=== PATIENT | female | born 1965 | race American Indian/Alaskan Native ===

== ENCOUNTER 2021-10-11 17:05 | Emergency (ER) | payer BC ==
[2021-10-11 18:36] LABS: Bilirubin,Urine NEG (Negative); Blood,Urine NEG (Negative); Color,Urine Straw (Yellow); Protein,Urine <15 mg/dL mg/dL (Negative); Urobilinogen,Urine < 2.0 mg/dL (<2.0)
[2021-10-11 18:45] LABS: Hematocrit 48.3 % (30.3-42.9); Hemoglobin 15.3 gm/dl (10.1-14.3); Mean Corpuscular HGB Conc 32 % (30-34); Mean Corpuscular Volume 93 fl (79-97); Platelet Count 307 K/mm3 (140-440); Red Cell Distribution Width 14.7 % (13.2-15.2)
--- NOTE | 2021-10-11 18:49 | Emergency Department Report ---
ED General Adult HPI - General Chief complaint: Back Pain/Injury Stated complaint: HURT TO GO TO BATHROOM Time Seen by Provider: 10/11/21 17:22 Source: patient Mode of arrival: Ambulatory Limitations: No Limitations - History of Present Illness Initial comments: Patient is a 55-year-old female presents emergency room complaints of lower back pain that began approximately 2 weeks ago. She states originally she went to urgent care and states that she had a UA performed which she reports just showed blood but no signs of infection. She reports that she was given a shot and some medication for pain. She states approximately a week later she began having dysuria. She states that she went to another urgent care and was given a prescription for Bactrim, Pyridium. She states that her symptoms of not been improving. She states that she continues to have dysuria and hematuria. Patient states that she has an upcoming appointment with [facility] next week. She states that she was referred to a urologist but she has not seen them yet. She denies any past medical history. No allergies to medications. She states that she is a heavy drinker. - Related Data Previous Rx's Medication Instructions Recorded Last Taken Type Ketorolac [Toradol] 10 mg PO Q6H PRN #10 tablet 10/11/21 Unknown Rx Ondansetron [Zofran Odt] 4 mg PO Q8HR PRN #10 tab.rapdis 10/11/21 Unknown Rx Tamsulosin [Flomax] 0.4 mg PO QDAY #7 cap 10/11/21 Unknown Rx traMADoL [Ultram 50 MG tab] 50 mg PO Q6HR PRN #12 tablet 10/11/21 Unknown Rx Allergies Allergy/AdvReac Type Severity Reaction Status Date / Time No Known Allergies Allergy Unverified 10/11/21 17:15 ED Review of Systems ROS: Stated complaint: HURT TO GO TO BATHROOM Other details as noted in HPI Comment: All other systems reviewed and negative ED Past Medical Hx - Medications Home Medications: Home Medications Medication Instructions Recorded Confirmed Last Taken Type Ketorolac [Toradol] 10 mg PO Q6H PRN #10 tablet 10/11/21 Unknown Rx Ondansetron [Zofran Odt] 4 mg PO Q8HR PRN #10 tab.rapdis 10/11/21 Unknown Rx Tamsulosin [Flomax] 0.4 mg PO QDAY #7 cap 10/11/21 Unknown Rx traMADoL [Ultram 50 MG tab] 50 mg PO Q6HR PRN #12 tablet 10/11/21 Unknown Rx ED Physical Exam - General Limitations: No Limitations General appearance: alert, in no apparent distress - Head Head exam: Present: atraumatic, normocephalic - Eye Eye exam: Present: normal appearance - ENT ENT exam: Present: mucous membranes moist - Respiratory Respiratory exam: Present: normal lung sounds bilaterally. Absent: respiratory distress, wheezes, rales, rhonchi, stridor, chest wall tenderness, accessory muscle use, decreased breath sounds, prolonged expiratory - Cardiovascular Cardiovascular Exam: Present: regular rate, normal rhythm, normal heart sounds. Absent: systolic murmur, diastolic murmur, rubs, gallop - GI/Abdominal GI/Abdominal exam: Present: soft, normal bowel sounds. Absent: distended, tenderness, guarding, rebound, rigid - Back Exam Back exam: Absent: CVA tenderness (R), CVA tenderness (L) - Neurological Exam Neurological exam: Present: alert, oriented X3 - Psychiatric Psychiatric exam: Present: normal affect, normal mood - Skin Skin exam: Present: warm, dry, intact ED Course Vital Signs 10/11/21 10/11/21 17:15 20:51 Temperature 98.0 F Pulse Rate 82 76 Respiratory 16 18 Rate Blood Pressure 136/82 130/80 [Right] O2 Sat by Pulse 96 98 Oximetry ED Medical Decision Making - Lab Data Result diagrams: 10/11/21 18:12 10/11/21 18:12 Lab Results 10/11/21 10/11/21 10/11/21 Range/Units 18:12 18:12 Unknown WBC 15.2 H (4.5-11.0) K/mm3 RBC 5.20 H (3.65-5.03) M/mm3 Hgb 15.3 H (10.1-14.3) gm/dl Hct 48.3 H (30.3-42.9) % MCV 93 (79-97) fl MCH 29 (28-32) pg MCHC 32 (30-34) % RDW 14.7 (13.2-15.2) % Plt Count 307 (140-440) K/mm3 Lymph # (Auto) Resident Care Coordinator Add Manual Diff Complete Total Counted 100 Seg Neuts % (Manual) 60.0 (40.0-70.0) % Lymphocytes % (Manual) 33.0 (13.4-35.0) % Monocytes % (Manual) 2.0 (0.0-7.3) % Eosinophils % (Manual) 4.0 (0.0-4.3) % Basophils % (Manual) 1.0 (0.0-1.8) % Nucleated RBC % Not Reportable Seg Neutrophils # Man 9.1 H (1.8-7.7) K/mm3 Band Neutrophils # 0.0 K/mm3 Lymphocytes # (Manual) 5.0 (1.2-5.4) K/mm3 Abs React Lymphs (Man) 0.0 K/mm3 Monocytes # (Manual) 0.3 (0.0-0.8) K/mm3 Eosinophils # (Manual) 0.6 H (0.0-0.4) K/mm3 Basophils # (Manual) 0.2 H (0.0-0.1) K/mm3 Metamyelocytes # 0.0 K/mm3 Myelocytes # 0.0 K/mm3 Promyelocytes # 0.0 K/mm3 Blast Cells # 0.0 K/mm3 WBC Morphology Not Reportable Hypersegmented Neuts Not Reportable Hyposegmented Neuts Not Reportable Hypogranular Neuts Not Reportable Smudge Cells Not Reportable Toxic Granulation Not Reportable Toxic Vacuolation Not Reportable Dohle Bodies Not Reportable Pelger-Huet Anomaly Not Reportable Dede Rods Not Reportable Platelet Estimate Not Reportable Clumped Platelets Not Reportable Plt Clumps, EDTA Not Reportable Large Platelets Not Reportable Giant Platelets Not Reportable Platelet Satelliting Not Reportable Plt Morphology Comment Not Reportable RBC Morphology Normal Dimorphic RBCs Not Reportable Polychromasia Not Reportable Hypochromasia Not Reportable Poikilocytosis Not Reportable Anisocytosis Not Reportable Microcytosis Not Reportable Macrocytosis Not Reportable Spherocytes Not Reportable Pappenheimer Bodies Not Reportable Sickle Cells Not Reportable Target Cells Not Reportable Tear Drop Cells Not Reportable Ovalocytes Not Reportable Helmet Cells Not Reportable [place] Bodies Not Reportable [place] Rings Not Reportable Gerald Cells Not Reportable Bite Cells Not Reportable Crenated Cell Not Reportable Elliptocytes Not Reportable Acanthocytes (Spur) Not Reportable Rouleaux Not Reportable Hemoglobin C Crystals Not Reportable Schistocytes Not Reportable Malaria parasites Not Reportable Levy Bodies Not Reportable Hem Pathologist Commnt No Sodium 142 (137-145) mmol/L Potassium 5.8 H (3.6-5.0) mmol/L Chloride 105.7 (98-107) mmol/L Carbon Dioxide 25 (22-30) mmol/L Anion Gap 17 mmol/L BUN 16 (7-17) mg/dL Creatinine 0.9 (0.6-1.2) mg/dL Estimated GFR > 60 ml/min BUN/Creatinine Ratio 18 % Glucose 97 (65-100) mg/dL Calcium 9.9 (8.4-10.2) mg/dL Total Bilirubin 0.20 (0.1-1.2) mg/dL AST 22 (5-40) units/L ALT 22 (7-56) units/L Alkaline Phosphatase 84 (35-129) units/L Total Protein 7.7 (6.3-8.2) g/dL Albumin 4.7 (3.9-5) g/dL Albumin/Globulin Ratio 1.6 % Lipase 40 (13-60) units/L Urine Color Straw (Yellow) Urine Turbidity Clear (Clear) Urine pH 6.0 (5.0-7.0) Ur Specific [place] 1.010 (1.003-1.030) Urine Protein <15 mg/dl (Negative) mg/dL Urine Glucose (UA) Neg (Negative) mg/dL Urine Ketones Neg (Negative) mg/dL Urine Blood Neg (Negative) Urine Nitrite Neg (Negative) Urine Bilirubin Neg (Negative) Urine Urobilinogen < 2.0 (<2.0) mg/dL Ur Leukocyte Esterase Neg (Negative) Urine WBC (Auto) 2.0 (0.0-6.0) /HPF Urine RBC (Auto) 1.0 (0.0-6.0) /HPF - Radiology Data Radiology results: report reviewed CT ABDOMEN AND PELVIS WITHOUT CONTRAST INDICATION / CLINICAL INFORMATION: low back pain, hematuria x2wks. TECHNIQUE: Axial CT images were obtained through the abdomen and pelvis without IV contrast. Sagittal and coronal reformatted images. All CT scans at this location are performed using CT dose reduction for ALARA by means of automated exposure control. COMPARISON: None available. FINDINGS: LOWER CHEST: There are numerous tiny calcified nodules at the lung bases consistent with numerous calcified granulomas. No infiltrate or effusion. Normal heart size. LIVER: No significant abnormality. GALLBLADDER: No significant abnormality. BILE DUCTS: No significant abnormality. PANCREAS: No significant abnormality. SPLEEN: No significant abnormality. ADRENALS: No significant abnormality. RIGHT KIDNEY and URETER: A 3 mm calyceal stone is identified at the inferior pole. No focal renal lesion, ureteral stone or hydronephrosis. LEFT KIDNEY and URETER: A punctate calyceal stone is identified at the superior pole and inferior pole. No focal renal lesion, ureteral stone or hydronephrosis. STOMACH and SMALL BOWEL: No significant abnormality. COLON: Minimal diverticulosis. No inflammatory changes or obstruction. APPENDIX: No significant abnormality. PERITONEUM: No free fluid. No free air. No fluid collection. LYMPH NODES: No significant adenopathy. AORTA and ARTERIES: No significant abnormality. IVC and VEINS: No significant abnormality. URINARY BLADDER: A 4 mm stone is identified in the right side of the bladder. No bladder wall thickening. REPRODUCTIVE ORGANS: No significant abnormality. ADDITIONAL FINDINGS: None. SKELETAL SYSTEM: Mild thoracolumbar spondylosis. IMPRESSION: Bilateral nephrolithiasis as described. No ureteral stones or hydronephrosis. A 4 mm bladder stone is identified. Minimal diverticulosis of the colon. Numerous calcified granulomas at the lung bases consistent with chronic granulomatous disease. - Medical Decision Making Patient is a 55-year-old female presents emergency room complaints of lower back pain that began approximately 2 weeks ago. She states originally she went to urgent care and states that she had a UA performed which she reports just showed blood but no signs of infection. She reports that she was given a shot and some medication for pain. She states approximately a week later she began having dysuria. She states that she went to another urgent care and was given a prescription for Bactrim, Pyridium. She states that her symptoms of not been improving. She states that she continues to have dysuria and hematuria. Patient states that she has an upcoming appointment with [facility] next week. She states that she was referred to a urologist but she has not seen them yet. She denies any past medical history. No allergies to medications. She states that she is a heavy drinker. Vitals are stable. No abdominal tenderness or CVA tenderness on exam. Labs with nonspecific leukocytosis, otherwise normal. UA is within normal limits. CT abdomen pelvis without contrast Bilateral nephrolithia sis as described. No ureteral stones or hydronephrosis. A 4 mm bladder stone is identified. Minimal diverticulosis of the colon. Numerous calcified granulomas at the lung bases consistent with chronic granulomatous disease. Discussed findings with patient. Discussed the importance of outpatient follow-up. Patient given prescription for medications. Advised patient Please take medication as prescribed. Increase your water intake. Follow-up with your primary care doctor. Follow-up with a urologist. Please keep your appointment with your [facility]. Return to emergency room for any new or worsening symptoms. Critical care attestation.: If time is entered above; I have spent that time in minutes in the direct care of this critically ill patient, excluding procedure time. ED Disposition Clinical Impression: Nephrolithiasis, Hyperkalemia Disposition: HOME / SELF CARE / HOMELESS Is pt being admited?: No Does the pt Need Aspirin: No Condition: Stable Instructions: Hyperkalemia, [id number], Kidney Stones, [id number] Additional Instructions: Please take medication as prescribed. Increase your water intake. Follow-up with your primary care doctor. Follow-up with a urologist. Please keep your appointment with your [facility]. Return to emergency room for any new or worsening symptoms. Prescriptions: Tamsulosin [Flomax] 0.4 mg PO QDAY #7 cap Ketorolac [Toradol] 10 mg PO Q6H PRN #10 tablet PRN Reason: Pain, Moderate (4-6) traMADoL [Ultram 50 MG tab] 50 mg PO Q6HR PRN #12 tablet PRN Reason: Pain , Severe (7-10) Ondansetron [Zofran Odt] 4 mg PO Q8HR PRN #10 tab.rapdis PRN Reason: nausea/vomiting Referrals: PRIMARY CARE, [Primary Care Provider] - 3-5 Days EDUARDO MATTA MD [Staff Physician] - 3-5 Days your, distribution systems serviceperson [Other] - 3-5 Days Forms: Work/School Release Form(ED) Time of Disposition: 20:18 Print Language: NIGERIAN
[2021-10-11 18:55] LABS: Alanine Aminotransferase 22 units/L (7-56); Albumin 4.7 g/dL (3.9-5); BUN/Creatinine Ratio 18; Blood Urea Nitrogen 16 mg/dL (7-17); Calcium 9.9 mg/dL (8.4-10.2); Hemolysis Index 9
[2021-10-11] MEDS ORDERED: SODIUM POLYSTYRENE 15 GM/60 ML ORAL LIQD PO ONE (19:00)
[2021-10-11 19:23] LABS: RBC Morphology Normal; Total Cells Counted 100
--- NOTE | 2021-10-11 20:16 | Cat Scan Report ---
CT ABDOMEN AND PELVIS WITHOUT CONTRAST INDICATION / CLINICAL INFORMATION: low back pain, hematuria x2wks. TECHNIQUE: Axial CT images were obtained through the abdomen and pelvis without IV contrast. Sagittal and gonzalez l reformatted images. All CT scans at this location are performed using CT dose reduction for ALARA b y means of automated exposure control. COMPARISON: None available. FINDINGS: LOWER CHEST: There are numerous tiny calcified nodules at the lung bases consistent with numerous kathy cified granulomas. No infiltrate or effusion. Normal heart size. LIVER: No significant abnormality. GALLBLADDER: No significant abnormality. BILE DUCTS: No significant abnormality. PANCREAS: No significant abnormality. SPLEEN: No significant abnormality. ADRENALS: No significant abnormality. RIGHT KIDNEY and URETER: A 3 mm calyceal stone is identified at the inferior pole. No focal renal les ion, ureteral stone or hydronephrosis. LEFT KIDNEY and URETER: A punctate calyceal stone is identified at the superior pole and inferior yusuf e. No focal renal lesion, ureteral stone or hydronephrosis. STOMACH and SMALL BOWEL: No significant abnormality. COLON: Minimal diverticulosis. No inflammatory changes or obstruction. APPENDIX: No significant abnormality. PERITONEUM: No free fluid. No free air. No fluid collection. LYMPH NODES: No significant adenopathy. AORTA and ARTERIES: No significant abnormality. IVC and VEINS: No significant abnormality. URINARY BLADDER: A 4 mm stone is identified in the right side of the bladder. No bladder wall thicken ing. REPRODUCTIVE ORGANS: No significant abnormality. ADDITIONAL FINDINGS: None. SKELETAL SYSTEM: Mild thoracolumbar spondylosis. IMPRESSION: Bilateral nephrolithiasis as described. No ureteral stones or hydronephrosis. A 4 mm bladder stone is identified. Minimal diverticulosis of the colon. Numerous calcified granulomas at the lung bases consistent with chronic granulomatous disease. Signer Name: Cristian Kirby Jr, MD Signed: 10/11/2021 8:11 PM Workstation Name: [id number]
[2021-10-11 20:53] VITALS: BP 130/80
== END 2021-10-11 20:53 | disposition home or self-care (01) ==
LOC: ED 17:05
DX: N20.0 Calculus of kidney (principal); E87.5 Hyperkalemia
CPT/HCPCS: 36415; 74176; 80053; 81001; 83690; 85007; 85025; 99284